=== PATIENT | male | born 1975 ===

== ENCOUNTER 2021-07-03 13:40 | Emergency (ER) | payer BC ==
--- NOTE | 2021-07-03 15:42 | EDM.PDOC ---
ED HPI GENERAL MEDICAL PROBLEM - General Chief Complaint: Lower Extremity Injury/Pain Stated Complaint: RIGHT KNEE PAIN Time Seen by Provider: 07/03/21 13:48 Source of Information: Reports: Patient History Limitations: Reports: No Limitations - History of Present Illness INITIAL COMMENTS - FREE TEXT/NARRATIVE: HISTORY AND PHYSICAL: History of present illness: Patient is a 45-year-old male who presents emergency room today with concern of right knee swelling over the past 4 days. Patient states that he has had a prior meniscus tear/injury as well as a Gusman's cyst that ruptured and states that he was supposed to have surgery on his knee of November this year but due to moving and Covid the surgery did not occur. Patient states that his right knee has been doing well so he did not think to follow-up with an orthopedic provider here in [place]. Patient states that 2 to 3 days ago, he was walking and he felt the tightness in his right knee which did feel similar to his meniscus tear and states that he started having swelling over the past 4 days. Patient states that he is continue to work and use the knee and is active with the knee despite the pain and states that his symptoms are not getting any better. Patient states that he felt a popping sensation in the inner portion of his knee which was similar to his prior meniscus tear. Patient states that he felt the catching sensation and since then has had pain with range of motion of his knee. Patient denies any direct trauma or injury Patient denies fever, chills, chest pain, shortness of breath, or cough. Denies headache, neck stiff ness, change in vision, syncope, or near syncope. Denies nausea, vomiting, abdominal pain, diarrhea, constipation, or dysuria. Has not noted any blood in urine or stool. Patient has been eating and drinking appropriately. Review of systems: As per history of present illness and below otherwise all systems reviewed and negative. Past medical history: As per history of present illness and as reviewed below otherwise noncontributory. Surgical history: As per history of present illness and as reviewed below otherwise noncontributory. Social history: See social history for further information Family history: As per history of present illness and as reviewed below otherwise noncontributory. Physical exam: General: Patient is alert, oriented, and in no acute distress. Patient sitting comfortably on exam table. Vitals stable and reviewed by me. HEENT: Atraumatic, normocephalic, pupils equal and reactive bilaterally, negative for conjunctival pallor or scleral icterus, mucous membranes moist, TMs normal bilaterally, throat clear, neck supple, nontender, trachea midline. No drooling or trismus noted. No meningeal signs. No hot potato voice noted. Lungs: Clear to auscultation, breath sounds equal bilaterally, chest nontender. Heart: S1S2, regular rate and rhythm without overt murmur Abdomen: Soft, nondistended, nontender. Negative for masses or hepatosplenomegaly. Negative for costovertebral tenderness. Pelvis: Stable nontender. Genitourinary: Deferred. Rectal: Deferred. Skin: Intact, warm, dry. No lesions or rashes noted. Extremities: The right knee is edematous with a small area of erythema over the medial knee. Patient has no pain with passive ROM of the knee but does have limited ROM of the knee due to pain with active ROM. Dorsalis pedis and posterior tibial pulses are grossly intact of the right lower extremity with capillary refill less than 2 seconds. Atraumatic, negative for cords or calf pain. Neurovascular unremarkable. Neuro: Awake, alert, oriented. Cranial nerves II through XII unremarkable. Cerebellum unremarkable. Motor and sensory unremarkable throughout. Exam nonfocal. Notes: Patient is a 45-year-old male who presents emergency room today with concern of right knee pain and swelling over the past 4 days. Upon arrival to the ED, patient is vitally stable and well-appearing on exam but does have edema of the right knee with pain with active range of motion. No pain with passive range of motion on exam, neurovascularly intact of the RLE. Patient does have a small circular area of erythema over the medial knee. Dr Sullivan at bedside and directly involved in patient care. He is agreeable that area of erythem related to injury rather than septic arthritis given that patient does not have any pain with passive range of motion of the knee, vitally stable and well appearing. Will obtain x-ray of the knee. Right knee x-ray shows no acute osseous injury or abnormalities noted. A small knee effusion present. Upon reevaluation of patient, he remains vitally stable and comfortable throughout stay in ED. Upon discharge, patient does become upset requesting that "I give him a steroid injection" into his knee or "put a needle into his knee to drain it all". I discussed with patient that I will refer him to an design specialist provider who may meet these requests but I will not do this today in the Emergency Room. Patient raises his voice stating "you are not even helping me and this visit was pointless and a waste of my time". I did recommend we immobilize the knee with a knee immobilizer and minimal weight with crutches until evaluation until orthopedics as he has been continuing to be active on the knee despite the injury. Patient declines knee immobilizer and crutches. All risks versus benefits discussed with patient and expresses understanding. Strict return precautions thoroughly discussed with patient. Signs and symptoms that were prompt return to the ED thoroughly discussed with patient. Discussed importance for follow-up with an orthopedic provider. Voices understanding. Denies any further questions at this time. Diagnostics: Knee x-ray, right Therapeutics: Crutches and knee immobilizer (Patient declines this-all risks vs benefits discussed with patient and expresses understanding) Prescription: Meloxicam, [place]top[place]/Acetaminophen 5/325 (#12 tabs) Impression: Right knee pain/edema, r/o meniscus injury/ligamentous injury Plan: 1. Rest, ice, elevate the affected extremity. You can apply ice 15 minutes on, 15 minutes off. Use the knee immobilizer and crutches until follow-up with the orthopedic provider. Do not continue to use the knee until you have been evaluated by the orthopedic provider as discussed. 2. Tylenol as directed for pain management or discomfort. Take medication as prescribed. Do not take meloxicam with any additional NSAIDs such as ibuprofen, naproxen, Aleve, etc. as discussed. Use [place]topia as prescribed. Caution with this medication as it does cause drowsiness and sedation so do not take this medication and drive any heavy equipment or operate any heavy machinery. Caution with this medication outside of the home. This medication also does increase the risk for falls so make sure to move slowly when changing your position. 3. Follow up with the Orthopedic provider as discussed. Call the clinic in the morning to establish an appointment time. Return to the ED as needed and as discussed. Definitive disposition and diagnosis as appropriate pending reevaluation and review of above. right knee Pain Score (Numeric/FACES): 9 - Related Data Allergies Allergy/AdvReac Type Severity Reaction Status Date / Time No Known Allergies Allergy Verified 07/03/21 14:05 Home Meds: Home Meds Hydrocodone/Acetaminophen [HYDROcodone-Acetaminophen 5-325 MG] 1 each PO Q6H PRN #12 tab 07/03/21 [Rx] Meloxicam, Submicronized [Meloxicam] 5 mg PO DAILY PRN #30 capsule 07/03/21 [Rx] Past Medical History HEENT History: Reports: None Cardiovascular History: Reports: None Respiratory History: Reports: None Gastrointestinal History: Reports: None Genitourinary History: Reports: None Musculoskeletal History: Reports: None Neurological History: Reports: None Psychiatric History: Reports: None Endocrine/Metabolic History: Reports: None Hematologic History: Reports: None Immunologic History: Reports: None Oncologic (Cancer) History: Reports: None Dermatologic History: Reports: None - Infectious Disease History Infectious Disease History: Reports: None - Past Surgical History Head Surgeries/Procedures: Reports: None HEENT Surgical History: Reports: None Cardiovascular Surgical History: Reports: None Respiratory Surgical History: Reports: None GI Surgical History: Reports: None Male Surgical History: Reports: None Endocrine Surgical History: Reports: None Neurological Surgical History: Reports: None Musculoskeletal Surgical History: Reports: Other (See Below) Other Musculoskeletal Surgeries/Procedures:: miniscius repair Oncologic Surgical History: Reports: None Dermatological Surgical History: Reports: None Social & Family History - Family History Family Medical History: No Pertinent Family History - Tobacco Use Tobacco Use Status *Q: Never Tobacco User Second Hand Smoke Exposure: No - Caffeine Use Caffeine Use: Reports: None - Recreational Drug Use Recreational Drug Use: No Review of Systems - Review of Systems Review Of Systems: Comprehensive ROS is negative, except as noted in HPI. ED EXAM, GENERAL - Physical Exam Exam: See Below (see dictation) Course - Vital Signs Last Recorded V/S: Last Vital Signs Temp 98.2 F 07/03/21 14:49 Pulse 82 07/03/21 15:32 Resp 18 07/03/21 15:32 BP 146/83 H 07/03/21 14:49 Pulse Ox 98 07/03/21 15:32 - Orders/Labs/Meds Orders: Active Orders 24 hr Category Date Time Status DME for Discharge [COMM] Stat Oth 07/03/21 16:29 Ordered Departure - Departure Time of Disposition: 16:38 Disposition: Home, Self-Care 01 Clinical Impression: Edema of knee Right knee pain Qualifiers: Chronicity: acute Qualified Code(s): M25.561 - Pain in right knee - Discharge Information Prescriptions: Hydrocodone/Acetaminophen [HYDROcodone-Acetaminophen 5-325 MG] 1 each PO Q6H PRN #12 tab PRN Reason: Pain (Severe 7-10) Meloxicam, Submicronized [Meloxicam] 5 mg PO DAILY PRN #30 capsule PRN Reason: Pain Referrals: PCP,None [Primary Care Provider] - Forms: ED Department Discharge Additional Instructions: The following information is given to patients seen in the emergency department who are being discharged to home. This information is to outline your options for follow-up care. We provide all patients seen in our emergency department with a follow-up referral. The need for follow-up, as well as the timing and circumstances, are variable depending upon the specifics of your emergency department visit. If you don't have a primary care physician on staff, we will provide you with a referral. We always advise you to contact your personal physician following an emergency department visit to inform them of the circumstance of the visit and for follow-up with them and/or the need for any referrals to a consulting specialist. The emergency department will also refer you to a specialist when appropriate. This referral assures that you have the opportunity for follow-up care with a specialist. All of these measure are taken in an effort to provide you with optimal care, which includes your follow-up. Under all circumstances we always encourage you to contact your private physician who remains a resource for coordinating your care. When calling for follow-up care, please make the office aware that this follow-up is from your recent emergency room visit. If for any reason you are refused follow-up, please contact the [facility] at and asked to speak to the emergency department charge nurse. [facility] [address], [place] [address] [facility] [address] [place] [id number] [facility] [address], [address] [place] [address] 1. Rest, ice, elevate the affected extremity. You can apply ice 15 minutes on, 15 minutes off. Use the knee immobilizer and crutches until follow-up with the orthopedic provider. Do not continue to use the knee until you have been evaluated by the orthopedic provider as discussed. 2. Tylenol as directed for pain management or discomfort. Take medication as prescribed. Do not take meloxicam with any additional NSAIDs such as ibuprofen, naproxen, Aleve, etc. as discussed. Use [place]top[place] as prescribed. Caution with this medication as it does cause drowsiness and sedation so do not take this medication and drive any heavy equipment or operate any heavy machinery. Caution with this medication outside of the home. This medication also does increase the risk for falls so make sure to move slowly when changing your position. 3. Follow up with the Orthopedic provider as discussed. Call the clinic in the morning to establish an appointment time. Return to the ED as needed and as discussed. Sepsis Event Note (ED) - Focused Exam Vital Signs: Vital Signs Temp Pulse Resp BP Pulse Ox 07/03/21 15:32 82 18 98 07/03/21 14:49 98.2 F 82 18 146/83 H 97 07/03/21 14:03 97.8 F 88 18 149/83 H 96 - My Orders Last 24 Hours: My Active Orders 07/03/21 16:29 DME for Discharge [COMM] Stat - Assessment/Plan Last 24 Hours: My Active Orders 07/03/21 16:29 DME for Discharge [COMM] Stat
--- NOTE | 2021-07-03 16:11 | CR ---
INDICATION: Knee pain TECHNIQUE: Knee radiograph 3 views right COMPARISON: None FINDINGS: Bone: No acute fractures or aggressive bone lesions are identified. Joint: The joint spaces of the medial, lateral, and patellofemoral compartments are unremarkable. A small knee effusion is present. Soft tissue: Anterior swelling and subcutaneous edema is noted. No radiopaque foreign bodies are seen. IMPRESSIONS: 1. No acute osseous injuries or abnormalities are noted. 2. A small knee effusion is present. Dictated by José Miguel Gonzalez MD @ 07/03/2021 4:09:44 PM Dictated by: José Miguel Gonzalez MD @ 07/03/2021 16:09:53 (Electronically Signed)
== END 2021-07-03 16:45 | disposition home or self-care (01) ==
LOC: MW.ED 13:40
DX: M25.561 Pain in right knee (principal); R60.0 Localized edema
CPT/HCPCS: 73562-26-RT; 73562-RT; 99283-25